=== PATIENT | female | born 1995 | race Caucasian/White ===

== ENCOUNTER 2020-09-11 17:30 | Outpatient (REF) | payer OTHER, SELFPAY | END 2020-09-11 17:31 | disposition home or self-care (01) | LOC: HO.LAB 17:30 | PROVIDERS: Visit Provider Internal Medicine | DX: Z20.828 Contact with and (suspected) exposure to other viral communicable diseases (principal) | CPT/HCPCS: C9803; U0003 ==

== ENCOUNTER 2021-02-10 02:03 | Emergency (ER) | payer OTHER, SELFPAY ==
[2021-02-10 02:06] VITALS: BP 132/83; PULSE 125; RESP 18; TEMP 37; O2SAT 100; BMI 21.1
[2021-02-10 04:10] VITALS: BP 145/81; PULSE 115; RESP 16; TEMP 37.5; O2SAT 100
--- NOTE | 2021-02-10 04:54 | ED.GENADULT ---
HPI - General Adult General Chief complaint: General Medical Stated complaint: FACE SWELLING Time Seen by Provider: 02/10/21 04:01 Source: patient Mode of arrival: ambulatory History of Present Illness HPI narrative: Patient with mild swelling at the left infraorbital area with clear discharge from the eye and denies any pain on movement or visual changes. Patient states that she is on antibiotics as well as steroids for presumed sinus infection, however on evaluation of nostrils I asked patient whether not she snorts cocaine and she affirmed that she does last incident was 3 days ago. She was cautioned that steroids may also contribute to this orbital edema. She denies any fevers, chills and has been trying to stop using cocaine. Related Data Allergies Allergy/AdvReac Type Severity Reaction Status Date / Time No Known Allergies Allergy Unverified 07/20/20 16:33 seasonal Allergy Unknown stuff Uncoded 06/14/20 00:00 nose, itchy throat,heavy chest Review of Systems Review of Systems: Pertinent positives and negatives as stated in the HPI and 10 point review of systems is otherwise negative. PMFSH Past Medical History Source: nursing notes reviewed Social History Social History Alcohol intake: current Alcohol intake frequency: holidays/special occasions only Alcohol type: wine Smoking Status: Never smoker Use of substances other than those prescribed or required for medical reasons: No Substance Use Type: Crack/Cocaine Substance Use Frequency: Occasionally Last Used Substance: Days (ago) Advance Directives: No Advance Directives Information Provided: No Physical Exam Vital Signs: Vital Signs: Last Vital Signs Temp 99.5 F 02/10/21 04:10 Pulse 115 H 02/10/21 04:10 Resp 16 02/10/21 04:10 BP 145/81 H 02/10/21 04:10 Pulse Ox 100 02/10/21 04:10 Body Mass Index 21.1 VITAL SIGNS: Reviewed. GENERAL: Well developed, well nourished, in no acute distress. HEAD: Normocephalic/atraumatic EYES: PERRLA, EOMI intact without pain, mild left periorbital edema noted without induration no conjunctival injection EARS: Ext canals without abnormality, TMs non-bulging and non-erythematous NOSE: Nares patent bilateral, with clear effluent, obvious friable nasal passages without noted septal ulcerations OROPHARYNX: no oral lesions noted, posterior pharynx clear and non-erythematous NECK: Supple, no adenopathy LUNGS: Normal breath sounds. No adventitious sounds or accessory muscle use. SpO2<100> CARDIOVASCULAR: Regular rate and rhythm without noted murmurs ABDOMEN: Soft, non-tender, non-distended with bowel sounds. NEUROLOGIC: Alert and oriented x 4. Course Course Course Narrative: 25-year-old female with history and clinical presentation consistent with irritation, pain, and swelling secondary to repeated substance use. There is no evidence of stye, chalazion, orbital infection. Findings and suspected cause discussed with the patient at bedside and she was strongly encouraged to get further evaluation by an ENT to ensure that there has been no longstanding damage to the nasal/sinus passages primarily on the left. She acknowledged understanding and was discharged home in stable condition with recommendations to follow-up with her primary care provider as well as an ENT specialist and that she should refrain from using the antibiotics and steroids as neither the history nor the presentation was consistent with bacterial sinusitis. Discharge Plan Discharge Clinical Impression: Chronic sinusitis, Periorbital swelling Patient Disposition: Home, Self-Care Instructions: Warm Compress or Soak (ED) Additional Instructions: 1. Recommend stopping steroid and antibiotic use as there is low suspicion for active bacterial infection. 2. Recommend using warm compresses to the left eye. 3. Please follow-up with an ENT specialist for evaluation of nasal passages, sinuses. Do not hesitate to return to the emergency department should you develop acute worsening of your symptoms. Referrals: Matias Betts MD [Primary Care Provider] - 2 days (Re-evaluation by after seen for presumed sinus infection, however may appear to be secondary to erosive process in combination with allergies. May consider a referral to ENT.) Interventions: ED Discharge Assessment Last Done: 02/10/21 05:05 Discharge Date/Time: 02/10/21 05:05
== END 2021-02-10 05:05 | disposition home or self-care (01) ==
PROVIDERS: Emergency Provider Student in an Organized Health Care Education/Training Program; PCP Internal Medicine
DX: J32.9 Chronic sinusitis, unspecified (principal); H05.223 Edema of bilateral orbit; F14.90 Cocaine use, unspecified, uncomplicated
CPT/HCPCS: 99283; 99284

== ENCOUNTER 2021-03-14 09:08 | Emergency (ER) | payer OTHER, SELFPAY ==
--- NOTE | ~2021-03-14 | CT_ITS ---
EXAMINATION: CT HEAD WITHOUT CONTRAST CLINICAL INFORMATION: Seizure COMPARISON: None TECHNIQUE: Contiguous axial imaging was performed from the skull base to vertex without intravenous administration of contrast. This CT examination was performed using dose optimization techniques as appropriate, variously including the following: *Automated exposure control *Adjustment of mA and/or kV according to patient size (this includes techniques or standardized protocols for targeted exams where dose is matched to indication/reason for exam; i.e. extremities or head) *Use of iterative reconstruction technique DLP: 658 mGy-cm FINDINGS: There is no evidence of acute intracranial hemorrhage or territorial infarction. No abnormal mass effect or midline shift is seen. Kelley to white matter differentiation is well preserved. No extra-axial fluid collections are identified. The ventricles are normal in size. There is no abnormal attenuation within the brain parenchyma. The osseous structures and soft tissues are normal. There are large polyps or mucous retention cyst seen in the bilateral maxillary sinuses. There is soft tissue opacification of the bilateral ethmoid and anterior sphenoid sinus as well. The frontal sinuses appear small or hypoplastic. There is a soft tissue opacification of the bilateral frontoethmoidal recesses and ostiomeatal complexes. CT/CT head/brain wo con IMPRESSION: Significant paranasal sinus disease otherwise unremarkable exam.
[2021-03-14 09:13] VITALS: BP 150/107; BP 150/70; PULSE 120; PULSE 126; RESP 20; TEMP 37.5; O2SAT 99; BMI 24.3
--- NOTE | 2021-03-14 09:27 | ECG_ITS ---
Test Reason : SEIZURE Blood Pressure : / mmHG Vent. Rate : 116 BPM Atrial Rate : 116 BPM P-R Int : 154 ms QRS Dur : 072 ms QT Int : 320 ms P-R-T Axes : 068 049 044 degrees QTc Int : 444 ms Sinus tachycardia Otherwise normal ECG No previous ECGs available Referred By: Luigi Mendes Electronically Signed By:Jean-Pierre Luciano
--- NOTE | 2021-03-14 09:35 | ED.GENADULT ---
HPI - General Adult General Chief complaint: Seizure Stated complaint: SEIZURE,POST ICTAL PER EMS Time Seen by Provider: 03/14/21 09:12 Source: patient and EMS Mode of arrival: EMS Limitations: no limitations History of Present Illness HPI narrative: 25-year-old female who presents emergency department for evaluation of witnessed altered mental status at work. The patient states she got up this morning in her usual routine before going to work. While she was at work she apparently had a 1 minutes episode of shaking with change in mental status which was witnessed by coworkers. The patient has no memory of the event. The patient states that she has been under a lot of stress since she has 2 jobs. She also states that she has had depression with decreased appetite and a lb weight loss over several months. She denied fever, chills, neck pain, headache, nausea, vomiting, chest pain, shortness of breath, abdominal pain, numbness or weakness. The patient states that she last drank 2 glasses of alcohol 2 days prior and only drinks occasionally. The patient does use intranasal cocaine and did use cocaine 2 days prior. The patient was seen here in the emergency department on 02/10/2021 for left infraorbital l facial swelling and discharge from her eyes and nose. At that time she was on antibiotics and steroids for presumed sinus infection. During that visit she did admit to using intranasal cocaine 3 days prior to evaluation. The patient states that she had seizure-like activity when she was 8 years old and had a workup at that time. She states that she has been told that her seizure-like activity was due to stress and panic attacks. She states that she has not had 1 of these events since she was younger. Related Data Home Medications Medication Instructions Recorded Confirmed norgestimate 0.25 mg-ethinyl 1 tab PO DAILY 02/20/21 estradiol 35 mcg tablet Previous Rx's Medication Instructions Recorded lorazepam 1 mg PO BEDTIME PRN #10 tab 03/14/21 Allergies Allergy/AdvReac Type Severity Reaction Status Date / Time amoxicillin Allergy Intermediate Rash Verified 02/20/21 14:41 clavulanic acid Allergy Intermediate Rash Verified 02/20/21 14:41 seasonal Allergy Unknown stuff Uncoded 06/14/20 00:00 nose, itchy throat,heavy chest Review of Systems Review of Systems: Yes all other systems are reviewed and are negative [facility] Past Medical History [facility] Narrative: Past medical history significant for seizure-like activity when she was younger with a negative workup, events attributed to stress and anxiety. She drinks alcohol occasionally and last drink 2 days prior. She states she does use intranasal cocaine and last used 2 days prior. Medical History (Updated 03/14/21 @ 16:16 by Luigi Mendes MD) Sinusitis Surgical History (Updated 02/20/21 @ 14:42 by Stanley Cox) History of knee surgery Family History Family History (Updated 02/20/21 @ 14:43 by Stanley Cox) Mother Hypertension Father Anxiety Depression AA (alcohol abuse) Sister Asthma Social History Social History Alcohol intake: current Alcohol intake frequency: 0-2 drinks per day Alcohol type: wine Smoking Status: Never smoker Use of substances other than those prescribed or required for medical reasons: Yes Substance Use Type: Crack/Cocaine Substance Use Frequency: Occasionally Any prior treatment program specific to substance use: No Advance Directives: No Advance Directives Information Provided: No Patient : No Physical Exam Vital Signs: Vital Signs: Last Vital Signs Temp 98.7 F 03/14/21 14:03 Pulse 86 03/14/21 14:03 Resp 20 03/14/21 14:03 BP 138/95 H 03/14/21 14:03 Pulse Ox 100 03/14/21 14:03 Body Mass Index 24.3 Const: Other: Awake, alert female, very pleasant and cooperative, the patient appears to be very anxious, she is tremulous, she is crying. HENMT: Other: The patient has a crusted lesion to her left medial external nares, there is a yellowish nasal discharge bilaterally, there is no tenderness with palpation over her sinuses Head: Yes normal to inspection, Yes normocephalic and Yes atraumatic Ears: external ears normal Face and sinus: Yes normal facial exam Mouth: Normal oral and palatal mucosa present Throat: Yes posterior oropharynx normal Eyes: Periorbital: periorbital findings normal Eyelids: Yes eyelids normal Conjunctivae: conjunctivae normal Sclerae: sclerae normal Corneas: corneas normal Pupils: Equal, round and reactive pupils present Direct Ophthalmoscopy: normal light reflex Neck: Neck: Yes full ROM, Yes no lymphadenopathy, Yes no meningeal signs, Yes trachea midline and Yes supple Chest: Chest palpation & inspection: normal inspection of the chest and normal palpation of entire chest wall Resp: Effort & Inspection: normal respiratory effort and able to speak in complete sentences Auscultation: clear to auscultation bilaterally Cardio: Rate: tachycardic Rhythm: regular rhythm Heart sounds: S1 normal heart sound present, S2 normal heart sound present and no murmurs GI: Inspection: Yes normal to inspection Palpation (GI): Soft to palpation, nontender, no guarding, not rigid and No hepatosplenomegaly present Auscultation: normal bowel sounds : General: Yes no CVA tenderness Back/Spine/Pelvis: Back: no CVA tenderness Cervical Spine: normal cervical lordosis Thoracic/Lumbar Spine: thoracic and lumbar spine normal to inspection Skin: Lesions: no lesions Rashes: no rashes Wounds: no wounds Neuro: General: no meningeal signs Cranial nerves: Yes CN's II-XII intact bilaterally and Yes Equal, round and reactive pupils present Cognition (Neuro): normal cognition Motor exam (neuro): 5/5 motor strength present throughout Extrem: General: Yes normal to inspection and Yes full ROM Psych: Appearance: well kempt Mental Status: mental status grossly normal Speech and movement: Normal speech and movement present Affect: Anxious affect present Attitude: cooperative Thought process: Normal thought process present Thought content: Normal thought content present, suicidality, no homicidality and no delusions Insight: Good insight present (Psych) Judgement: Good judgement present (Psych) Course Course Course Narrative: 25-year-old female who presents to the emergency department for evaluation of a brief altered level of consciousness associated with shaking that occurred while she was at work and was witnessed by coworkers. The patient does admit to drinking alcohol 2 days prior and to using intranasal cocaine which she has used in the past as well. Vital signs revealed a low-grade temperature of 99.5?, tachycardia with a pulse of 126 and hypertension with a blood pressure of 150/107. The patient's examination in the emergency department is consistent with anxiety, the patient is tearful and very tremulous, she does have a crusted lesion to her left nares with bilateral nasal discharge and her neurologic exam was nonfocal. I did order a seizure workup to include CT scan of the head, CBC, CMP,, urine test , urine drug screen and EKG. I did order normal saline IV x1 L and Ativan 1 mg IV for her anxiety. Twelve EKG revealed a sinus tachycardia with normal intervals. 1607: The patient's laboratory evaluation revealed anemia with an H&H of 10.0 in 30.8. Patient also [place] a [place] [address]. Electrolytes are otherwise unremarkable. CT scan of the patient's brain revealed no acute finding to explain her altered mental status event. The patient does have significant sinus disease and will need to follow-up with ENT for this incidental finding. The patient's 12 EKG revealed no prolonged QTC so I doubt that arrhythmia was the cause of her change in mental status. At this time, I believe that her change in her mental status was more likely triggered by stress and anxiety however electrical seizures need to be considered therefore she will be referred to our on-call neurologist. The patient does have a therapist who did want to prescribed medications in the past for her depression and I advised her to contact this therapist. The patient also has been abusing intranasal cocaine and she did give me permission to discuss this with her mother. Told the patient she should follow-up with the therapist this going to treat her depression to also help her with cocaine use disorder. Patient will be discharged home. She was given a prescription for Ativan 1 mg tablets, 1 pill to take at night and 1 pill to take 3 times a day as needed for stress and anxiety. She is aware that this medication can be addicting but I am going to give her only limited number of pills. Medical Decision Making Lab Data Result diagrams: 03/14/21 09:53 03/14/21 09:52 Labs: Lab Results 03/14/21 03/14/21 03/14/21 Range/Units 09:52 09:52 09:53 WBC 11.3 H (4.8-10.8) X10*3/uL RBC 3.75 L (4.20-5.50) X10*6/uL Hgb 10.0 L (12.0-16.0) g/dl Hct 30.8 L (37-47) % MCV 82.1 (80-98) fL MCH 26.7 L (27.0-33.0) pg MCHC 32.5 (31.0-35.0) g/dl RDW 14.3 (11.0-16.0) % Plt Count 445 H (160-400) X10*3/uL MPV 8.8 L (9.4-12.3) fL Immature Gran % (Auto) 0.4 (0.0-0.4) % Neut % (Auto) 80.9 H (45-73) % Lymph % (Auto) 9.3 L (20-40) % Travis % (Auto) 6.9 (2-11) % Eos % (Auto) 2.3 (0-4) % Baso % (Auto) 0.2 (0-2) % Lymph # (Auto) 1.1 L (1.2-4.9) X10*3/uL Travis # (Auto) 0.8 (0.1-1.2) X10*3/uL Eos # (Auto) 0.3 (0.0-0.4) X10*3/uL Baso # (Auto) 0.0 (0.0-0.2) X10*3/uL Abs Immat Gran (auto) 0.04 H (0.00-0.03) X10*3/uL Absolute Neuts (auto) 9.1 H (2.0-8.3) X10*3/uL Absolute Nucleated RBC 0.000 (0.0-0.012) X10*3/uL Nucleated RBC % (auto) 0.0 (0.0-0.2) /100WBC Sodium 138 (135-145) mmol/L Potassium 4.0 (3.3-5.1) mmol/L Chloride 106 (96-108) mmol/L Carbon Dioxide 21 L (22-29) mmol/L Anion Gap 15 (12-20) BUN 16 (9-16) mg/dL Creatinine 0.81 (0.5-1.4) mg/dL Estim Creat Clear Calc 105.0 Estimated GFR > 60 Random Glucose 87 (60-115) mg/dL Lactic Acid 1.4 (0.5-2.0) mmol/L Calcium 9.0 (8.4-10.2) mg/dL Total Bilirubin 0.2 (0.0-1.0) mg/dL AST 20 (5-31) U/L ALT 17 (0-31) U/L Alkaline Phosphatase 97 (39-117) U/L Total Protein 7.4 (6.5-8.0) g/dL Albumin 3.8 (3.5-5.0) g/dL Lipase 13 (8-78) U/L Beta HCG, Quant < 2 mIU/mL ECG Data Attestation: I personally reviewed and interpreted this ECG as follows: Interpretation: 0944: Sinus tachycardia with a rate of 116, normal [place], QRS and QTC interval of [address] segment elevation. No ST segment depression. No T-wave abnormalities. Except for the sinus tachycardia, this is otherwise a normal EKG. Discharge Plan Discharge Clinical Impression: Acute alteration in mental status, Anemia, Depression, Anxiety, Insomnia Patient Disposition: Home, Self-Care Instructions: Cocaine Abuse (ED), Depression (ED), New-Onset Seizure in Adults (ED) Additional Instructions: You had an altered mental status event, which I believe is consistent with a non electrical seizure triggered by stress and anxiety. You will need to follow-up with our neurologist on-call to determine if this event was an electrical versus non electrical seizure. Follow the new onset seizure instructions. Do not drive until you are cleared by the on-call neurologist. You are anemic. Take an iron supplement 3 times a day for 6 months. You can discuss which iron supplement with the best with the pharmacist. The CT scan of your brain revealed a normal brain however you do have significant sinus disease and you will need to follow-up with an ENT doctor to determine if you need a procedure to help drain your sinuses better. You need to follow-up with you therapist to discuss further management of your depression anxiety and also to discuss your cocaine use disorder. Take Ativan (lorazepam) 1 mg at night to help with sleep. This medication is called a benzodiazepine and can be addicting however I am only giving you a small number of pills to try to help you until you can not get in to see your therapist. Follow-up with Dr. Sotomayor our on-call neurologist within 1 week. Please return to the emergency department if your symptoms get worse or if you develop any symptoms that are concerning to you. Prescriptions: New lorazepam 1 mg tablet 1 mg PO BEDTIME PRN (Reason: insomnia) Qty: 10 RF: 0 Referrals: Grisel Green MD [Physician] - 1 week (Seizure versus pseudo-seizure lasted 1 minutes, patient has been using intranasal cocaine intermittently, workup in ED consistent with anemia and sinus disease only, needs follow-up for possible new onset seizure.) Stand Alone Forms: Work/School Release
[2021-03-14] MEDS: 0.9 % Sodium Chloride 1,000 ML 999 ML IV (09:57)
[2021-03-14] MEDS: LORazepam 2 MG/ML VIAL 1 MG IVPUSH (09:57)
[2021-03-14 09:58] LABS: MANUAL DIFF FLAG NO
--- NOTE | 2021-03-14 10:03 | PC.NURSE ---
pt very anxious, tachypneic, restless. pt counselled on slowing breathing, techniques and rationale. pt grandmother at bedside and updated with patient on care and plan.
[2021-03-14 10:04] LABS: Basophils Percent Auto 0.2 % (0-2); Eosinophils Absolute Auto 0.3 X10*3/uL (0.0-0.4); Eosinophils Percent Auto 2.3 % (0-4); Hematocrit 30.8 % (37-47); Imm Gran Abs Auto 0.04 X10*3/uL (0.00-0.03); Imm Gran Pct Auto 0.4 % (0.0-0.4); Lymphocytes Absolute Auto 1.1 X10*3/uL (1.2-4.9); Lymphocytes Percent Auto 9.3 % (20-40); Mean Corpuscular HGB Conc 32.5 g/dl (31.0-35.0); Mean Corpuscular Hemoglobin 26.7 pg (27.0-33.0); Mean Corpuscular Volume 82.1 fL (80-98); Mean Platelet Volume 8.8 fL (9.4-12.3); Monocytes Absolute Auto 0.8 X10*3/uL (0.1-1.2); Monocytes Percent Auto 6.9 % (2-11); Neutrophils Absolute Auto 9.1 X10*3/uL (2.0-8.3); Neutrophils Percent Auto 80.9 % (45-73); Platelet Count 445 X10*3/uL (160-400); Red Blood Count 3.75 X10*6/uL (4.20-5.50); Red Cell Distribution Width 14.3 % (11.0-16.0); White Blood Count 11.3 X10*3/uL (4.8-10.8)
[2021-03-14 10:18] LABS: Lactic Acid 1.4 mmol/L (0.5-2.0)
[2021-03-14 10:25] LABS: Alanine Aminotransferase 17 U/L (0-31); Albumin Level 3.8 g/dL (3.5-5.0); Alkaline Phosphatase 97 U/L (39-117); Anion Gap 15 (12-20); Aspartate Amino Transferase 20 U/L (5-31); Bilirubin Total 0.2 mg/dL (0.0-1.0); Blood Urea Nitrogen 16 mg/dL (9-16); Carbon Dioxide 21 mmol/L (22-29); Chloride 106 mmol/L (96-108); Estimated Glomerular Filt Rate > 60; Glucose Random 87 mg/dL (60-115); Lipase 13 U/L (8-78); Sodium 138 mmol/L (135-145); Total Protein 7.4 g/dL (6.5-8.0)
--- NOTE | 2021-03-14 10:32 | PC.NURSE ---
pt resting on stretcher, sz precautions in place. pt appears less anxious, RR decreased, crying decreased. Mother and grandfather at bedside, all aware awaiting CT Scan.
[2021-03-14 10:40] VITALS: BP 149/95; PULSE 123; RESP 20; O2SAT 99
[2021-03-14 12:06] VITALS: BP 125/86; PULSE 100; RESP 17; O2SAT 97
--- NOTE | 2021-03-14 12:37 | PC.NURSE ---
provider aware CT scan held r/t hcg testing. Serum test added onto prior labs, chemistry called and made aware.
--- NOTE | 2021-03-14 13:26 | PC.NURSE ---
Lab called regarding pending add on Serum HCG Quant.
[2021-03-14 14:03] VITALS: BP 138/95; PULSE 86; RESP 20; TEMP 37.1; O2SAT 100
[2021-03-14 14:03] LABS: HCG Quantitative < 2 mIU/mL
--- NOTE | 2021-03-14 15:04 | PC.NURSE ---
Report given to LYLY Tello. pt presentation, treatments, VS trends and plan reviewed.
== END 2021-03-14 16:32 | disposition home or self-care (01) ==
PROVIDERS: Emergency Provider Emergency Medicine Emergency Medical Services; PCP Internal Medicine
DX: R56.9 Unspecified convulsions (principal); R41.82 Altered mental status, unspecified; F33.1 Major depressive disorder, recurrent, moderate; F41.1 Generalized anxiety disorder; G47.00 Insomnia, unspecified; F14.90 Cocaine use, unspecified, uncomplicated; F43.0 Acute stress reaction; Z79.899 Other long term (current) drug therapy
CPT/HCPCS: 36415; 70450; 80053; 83605; 83690; 84702; 85025; 93005; 96365; 96375; 99285; J2060

== ENCOUNTER 2021-04-17 13:13 | Outpatient (REF) | payer OTHER, SELFPAY ==
--- NOTE | 2021-04-17 13:00 | EEG_ITS ---
The waking background activity consists of an 11 to 11.5 hertz moderate voltage posterior alpha frequency, intermixed anteriorly with low-voltage fast frequencies. Drowsiness is characterized by diffuse theta slowing. During sleep, symmetrical frontal central sleep spindles and K complexes developed over both hemispheres. During deeper stages of sleep, delta waves are seen over both hemispheres. Arousals are unremarkable. The patient remains asymptomatic. No focal, lateralizing, or paroxysmal discharges seen. IMPRESSION: This 24-hour ambulatory EEG is within normal limits with the patient remaining asymptomatic. MD RACHELE Lamas/ALEXANDRE / [phone]
== END 2021-04-17 13:14 | disposition home or self-care (01) ==
LOC: HO.NEURO 13:13
PROVIDERS: Visit Provider Psychiatry & Neurology Neurology
DX: R56.9 Unspecified convulsions (principal)
CPT/HCPCS: 95708

== ENCOUNTER 2021-04-30 16:22 | Outpatient (REF) | payer OTHER, SELFPAY | END 2021-04-30 16:23 | disposition home or self-care (01) | LOC: HO.LAB 16:22 | PROVIDERS: PCP Internal Medicine; Visit Provider Otolaryngology | DX: J30.89 Other allergic rhinitis (principal) | CPT/HCPCS: 36415; 82785; 86003 ==

== ENCOUNTER 2021-07-17 08:10 | Outpatient (REF) | payer OTHER, SELFPAY ==
[2021-07-18 01:26] LABS: CT PCR NOT DETECTED (Not Detect.); NG PCR NOT DETECTED (Not Detect.)
== END 2021-07-17 08:11 | disposition home or self-care (01) ==
LOC: HO.LAB 08:10
PROVIDERS: PCP Internal Medicine; Visit Provider Advanced Practice Midwife
DX: Z01.419 Encounter for gynecological examination (general) (routine) without abnormal findings (principal); Z11.3 Encounter for screening for infections with a predominantly sexual mode of transmission; Z20.2 Contact with and (suspected) exposure to infections with a predominantly sexual mode of transmission
CPT/HCPCS: 87491; 87591

== ENCOUNTER 2022-07-19 08:39 | Outpatient (REF) | payer OTHER, SELFPAY ==
[2022-07-19 13:03] LABS: CT PCR NOT DETECTED (Not Detect.); NG PCR NOT DETECTED (Not Detect.)
[2022-08-12 20:56] LABS: HPV 16 RNA NOT DETECTED (NOT DETECTED); HPV mRNA E6/E7 rflx Detected (Not Detected)
== END 2022-07-19 08:40 | disposition home or self-care (01) ==
LOC: HO.LNP 08:39
PROVIDERS: Visit Provider Advanced Practice Midwife
DX: Z01.419 Encounter for gynecological examination (general) (routine) without abnormal findings (principal)
CPT/HCPCS: 87491; 87591; 87624; 87625; 88142

== ENCOUNTER 2022-08-07 11:32 | Outpatient (REF) | payer OTHER, SELFPAY | END 2022-08-07 11:33 | disposition home or self-care (01) | LOC: HO.LAB 11:32 | PROVIDERS: Visit Provider Advanced Practice Midwife | DX: Z13.89 Encounter for screening for other disorder (principal) ==

== ENCOUNTER 2022-09-11 12:00 | Outpatient (REF) | payer OTHER, SELFPAY | END 2022-09-11 12:01 | disposition home or self-care (01) | LOC: HO.LNP 12:00 | PROVIDERS: PCP Internal Medicine; Visit Provider Obstetrics & Gynecology | DX: Z32.02 Encounter for pregnancy test, result negative (principal); R87.610 Atypical squamous cells of undetermined significance on cytologic smear of cervix (ASC-US); R87.810 Cervical high risk human papillomavirus (HPV) DNA test positive | CPT/HCPCS: 57454; 81025; 88305; 88342; 88360 ==

== ENCOUNTER 2025-04-14 08:24 | Outpatient (AMB) | payer OTHER, SELFPAY ==
--- NOTE | 2025-04-14 08:25 | MHC.OFFVIS ---
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 No complaints. Last Pap/HPV was in 04/24 ascus HPV 18/45 positive, HPV 16 negative, colpo biopsy ECC showed NOELLE 1 [facility] Medical History Dysplasia of cervix, low grade (NOELLE 1) Seizure disorder Sinusitis Surgical History History of knee surgery Family History Mother Hypertension Father Anxiety Depression AA (alcohol abuse) Sister Asthma Maternal Grandfather Colon cancer Family/Other Breast cancer Social History Household Members: None Housing: Apartment Alcohol intake: current Alcohol intake frequency: 0-2 drinks per day Alcohol type: wine Patient Tobacco Use Status: Never used Tobacco e-Cigarette/Vaping Use: Never Used Second Hand Smoke Exposure: No Substance Use Type: Crack/Cocaine and Marijuana service: No Current occupational status: employed Current occupation: home teaching grades 9 thru 12 teacher Sexual orientation: Straight/Heterosexual Gender identity: Female Cognitive needs: No Hearing needs: No Vision needs: No Female Reproductive History Menstrual Age of Menarche: 14 Duration of menses: 3-5 days Date of last menstrual period: 03/30/25 Date of last pap smear: 07/19/22 (+HPV) Review of Systems Const All systems reviewed & are unremarkable except as noted in HPI and below Card Reports as per HPI Resp Reports as per HPI GI Reports as per HPI and Reports no additional complaints Reports as per HPI Physical Exam Vital Signs: Last Vital Signs BP 132/78 04/14/25 08:33 BMI result Body Mass Index 30.5 Const General: cooperative, healthy appearing and comfortable Chest Chest palpation & inspection: normal inspection of the chest and normal palpation of entire chest wall Breast/axilla inspection: normal inspection of the breasts and normal inspection of the axillae Breast/axilla palpation: normal palpation of the breasts, normal palpation of the axillae and no axillary lymphadenopathy Resp Effort & Inspection: normal respiratory effort Auscultation: clear to auscultation bilaterally Percussion: percussion normal Cardio Palpation: normal PMI Rate: regular rate Rhythm: regular rhythm Heart sounds: no murmurs and no rubs Peripheral pulses: Peripheral pulses 2+ throughout GI Inspection: Yes normal to inspection Palpation (GI): Soft to palpation, nontender, no guarding, not rigid and No hepatosplenomegaly present Percussion: Yes normal to percussion Auscultation: normal bowel sounds Rectal Exam - Female: deferred General: Yes bladder normal to palpation External Female Exam: No lesion Speculum Exam - Vagina: normal appearance of the vagina, normal palpation, normal vaginal discharge and not erythematous Speculum Exam - Cervix: normal appearance of the cervix and normal palpation Bimanual exam- vagina & uterus: normal bimanual exam, normal palpation, uterine size normal, bladder normal to palpation, consistency normal and normal palpation Bimanual Exam- Adnexa, other: normal adnexae, no masses and no tenderness Assessment & Plan Assessment & Plan (1) Well woman exam: Comment: NOELLE 1 in 09/24 Code(s): Z01.419 - Encounter for gynecological examination (general) (routine) without abnormal findings Category: Medical Plan: Pap smear with reflex HPV done. GC/CT collected Counseled the patient about the recommended dietary allowance of 1000 mg of Calcium & 600 IU of vitamin D. The patient was instructed to perform monthly self-breast exams and to schedule an annual exam in a year; All questions answered and the patient verbalized understanding. Instructed the patient to schedule annual exam in a year Coding Level of Care Code Est Pt Prev Care 18-39y(66268) Diagnoses Well woman exam Z01.419
--- OUTSIDE RECORDS SUMMARY | 2025-04-14 08:32 | XMS_ITS | Encounter Summary ---
Author Organization [facility] Address [address] [place] [address] Phone Care Team Providers Care Four Slide Machine Setter Name Role Phone Stephanie Htafield MD Primary Care Provider Unavailab le Encounter Details Date Type Department Care Team (Late st Contact Info) Description 06/19/2017 Conversion Encounter [facility] - [address] [address] Social History Tobacco Use Types Packs/Day Years Used Date Smoking Tobacco: Never Comments:Never smoker Comments Unknown Sex and Gender Information Value Date Recorded Sex Assigned at Not on file Legal Sex Female 5:08 PM EDT Gender Identity Not on file Sexual Orientation Not on file documented as of this encounter Plan of Treatment Not on file documented as of this encounter Visit Diagnoses Not on filedocumented in this encounter Care Teams Four Slide Machine Setter Relationship Specialty Start Date End Date Stephanie Hatfield MD PCP - General Pediatrics 07/01/18 documented as of this encounter
[2025-04-14 08:33] VITALS: BP 132/78; BMI 30.5
== END 2025-04-14 08:45 | disposition home or self-care (01) ==
LOC: HO.HWS 08:24
PROVIDERS: PCP Internal Medicine; Visit Provider Obstetrics & Gynecology
DX: Z01.419 Encounter for gynecological examination (general) (routine) without abnormal findings (principal)
CPT/HCPCS: 99395; 99459

== ENCOUNTER 2025-04-14 08:24 | Outpatient (REF) | payer OTHER, SELFPAY ==
[2025-04-14 14:35] LABS: CT PCR NOT DETECTED (Not Detect.); NG PCR NOT DETECTED (Not Detect.)
== END 2025-04-14 08:25 | disposition home or self-care (01) ==
LOC: HO.LNP 08:24
PROVIDERS: PCP Internal Medicine; Visit Provider Obstetrics & Gynecology
DX: Z01.419 Encounter for gynecological examination (general) (routine) without abnormal findings (principal); N87.0 Mild cervical dysplasia
CPT/HCPCS: 87491; 87591; 88175